=== PATIENT | male | born 1990 | race Caucasian/White ===

== ENCOUNTER 2024-08-04 15:28 | Inpatient (IN) | payer OTHER ==
[~2024-08-04] VITALS: Ht 177.8 cm; Wt 77.3 kg
[2024-08-04] MEDS: ONDANSETRON HCL 4 MG/2 ML VIAL IVP ONE (17:09)
[2024-08-04] MEDS: KETOROLAC TROMETHAMINE 30 MG/ML VIAL IVP ONE (17:09)
[2024-08-04] MEDS: ACETAMINOPHEN 500 MG TABLET PO ONE (17:09)
[2024-08-04] MEDS: SODIUM CHLORIDE 0.9% 1,000 ML IV ONE (17:09)
[2024-08-04 18:13] LABS: BASOPHILS % (AUTO) 0.3 % (0.0-2.0); HEMATOCRIT 41.8 % (41-53); HEMOGLOBIN 13.8 g/dL (13.5-17.5); LYMPHOCYTES # (AUTO) 1.5 K/uL (1.0-4.8); LYMPHOCYTES % (AUTO) 19.3 % (22.0-44.0); MEAN CORPUSCULAR HEMOGLOBIN 28.4 pg (26.0-34.0); MEAN CORPUSCULAR HGB CONC 33.1 G/dL (31.0-37.0); MEAN CORPUSCULAR VOLUME 86 fL (80-100); MONOCYTES # (AUTO) 0.4 K/uL (0.1-1.0); NEUTROPHILS # (AUTO) 5.9 K/uL (1.8-7.7); NEUTROPHILS % (AUTO) 74.4 % (40.0-70.0); PLATELET COUNT (AUTO) 316 K/uL (150-450); RED BLOOD CELL COUNT(AUTO) 4.87 MIL/uL (4.50-5.90); RED CELL DISTRIBUTION WIDTH 13.2 % (11.5-14.5)
[2024-08-04 18:19] LABS: ANION GAP 5 mmol/L (8-16); CALCIUM, TOTAL 9.1 mg/dL (8.8-10.5); CARBON DIOXIDE 31 mmol/L (22-29); CHLORIDE 101 mmol/L (98-107); CREATININE 0.67 mg/dL (0.60-1.30); GLOMERULAR FILTR. RATE CALC > 60 mL/min (>60); GLUCOSE,RANDOM 100 mg/dL (70-110); POTASSIUM 4.8 mmol/L (3.5-5.1); SODIUM SERUM 137 mmol/L (136-145); UREA NITROGEN, BLOOD 12 mg/dL (7-18)
[2024-08-04 18:23] LABS: ALBUMIN 3.6 g/dL (3.4-5.0); BILIRUBIN,DIRECT 0.1 mg/dL (0.00-0.20); BILIRUBIN,TOTAL 0.4 mg/dL (0.1-1.0); TOTAL PROTEIN, SERUM 7.6 g/dL (6.4-8.2)
[2024-08-04 18:40] LABS: ALCOHOL, BLOOD (SERUM) < 3 mg/dL (0-10)
[2024-08-04 19:35] VITALS: BP 106/66; PULSE 77; RESP 19; TEMP 97.8; O2SAT 100
[2024-08-04] MEDS ORDERED: BISACODYL 10 MG RECTAL RECTAL SUPPOSITORY PR PRN (20:30)
[2024-08-04] MEDS ORDERED: ZOLPIDEM TARTRATE 5 MG TABLET PO PRN (20:30)
[2024-08-04] MEDS ORDERED: MAGNESIUM HYDROXIDE SUSPENSION 30 ML UDCUP PO PRN (20:30)
[2024-08-04] MEDS ORDERED: ACETAMINOPHEN 325 MG TABLET PO PRN ×2 (20:30→20:45)
[2024-08-04] MEDS ORDERED: IPRATROPIUM BROMIDE 0.5 MG/2.5 ML NEB SOLUTION NEB PRN (20:30)
[2024-08-04] MEDS ORDERED: ONDANSETRON HCL 4 MG/2 ML VIAL IVP PRN (20:30)
[2024-08-04] MEDS ORDERED: ALBUTEROL SULFATE 2.5 MG/0.5 ML NEB SOLUTION NEB PRN (20:30)
[2024-08-04] MEDS ORDERED: MORPHINE SULFATE 2 MG/ML SYRINGE IVP PRN (20:30)
[2024-08-04] MEDS ORDERED: LOPERAMIDE HCL 2 MG/15 ML SUSPENSION UDCUP PO PRN (20:45)
[2024-08-04] MEDS ORDERED: PROMETHAZINE HCL 25 MG TABLET PO PRN (20:45)
[2024-08-04] MEDS ORDERED: TraZODone HCL 50 MG TABLET PO PRN (20:45)
[2024-08-04] MEDS ORDERED: DICYCLOMINE HCL 10 MG CAPSULE PO PRN (20:45)
[2024-08-04] MEDS ORDERED: CloNIDine HCL 0.1 MG TABLET PO PRN (20:45)
[2024-08-04] MEDS ORDERED: MAG HYDROX/ALUMINUM HYD/SIMETH ES 30 ML SUSPENSION UDCUP PO PRN (20:45)
[2024-08-04] MEDS ORDERED: BACLOFEN 10 MG TABLET PO PRN (20:45)
[2024-08-04] MEDS: SODIUM CHLORIDE 0.45% 1,000 ML IV SCH (20:55)
[2024-08-04] MEDS: HEPARIN SODIUM,PORCINE 5,000 UNITS/ML VIAL SQ SCH (23:02)
[2024-08-05] MEDS: LORazepam 1 MG TABLET PO PRN (03:16)
[2024-08-05 04:05] VITALS: BP 117/64; PULSE 71; RESP 19; TEMP 98; O2SAT 99
[2024-08-05 06:42] LABS: PH,URINE DRUG SCREEN 6.5 (5.0-8.0)
[2024-08-05 07:26] LABS: AMPHET/METH SCREEN,URINE POSITIVE (NEGATIVE); BARBITURATE SCREEN, URINE NEGATIVE (NEGATIVE); BENZODIAZEPINES SCREEN,URINE NEGATIVE (NEGATIVE); CANNABINOID SCREEN,URINE NEGATIVE (NEGATIVE); COCAINE SCREEN,URINE NEGATIVE (NEGATIVE); METHADONE SCREEN, URINE NEGATIVE (NEGATIVE); OPIATE SCREEN,URINE NEGATIVE (NEGATIVE); PHENCYCLIDINE SCREEN,URINE NEGATIVE (NEGATIVE)
[2024-08-05 07:28] LABS: ALCOHOL, URINE DRUG SCREEN NEGATIVE (NEGATIVE)
[2024-08-05 08:17] VITALS: BP 106/55; PULSE 89; RESP 18; TEMP 98.7; O2SAT 97
[2024-08-05] MEDS: PANTOPRAZOLE SODIUM 40 MG DR TABLET PO SCH (08:30)
[2024-08-05 20:39] VITALS: BP 116/60; PULSE 82; RESP 18; TEMP 98.4; O2SAT 97
[2024-08-06] MEDS: IBUPROFEN 600 MG TABLET PO PRN (00:04)
[2024-08-06 05:45] VITALS: BP 122/73; PULSE 73; RESP 18; TEMP 98.4; O2SAT 97
[2024-08-06 08:54] VITALS: BP 120/72; PULSE 70; RESP 18; TEMP 97.7; O2SAT 97
[2024-08-06 20:25] VITALS: BP 119/58; PULSE 75; RESP 18; TEMP 98.5; O2SAT 100
[2024-08-06] MEDS: HYDROCODONE/ACETAMINOPHEN 5-325 MG TABLET PO PRN (20:32)
[2024-08-07 05:47] VITALS: BP 125/70; PULSE 65; RESP 18; TEMP 97.8; O2SAT 98
[2024-08-07 07:45] VITALS: BP 123/72; PULSE 68; RESP 18; TEMP 98.1; O2SAT 100
[2024-08-07] MEDS: HydrOXYzine PAMOATE 50 MG CAPSULE PO PRN (08:12)
[2024-08-07 10:22] VITALS: BP 123/72; PULSE 68; RESP 18; TEMP 98.1; O2SAT 100
[2024-08-07] MEDS ORDERED: HYDR-4527 PO (14:22)
[2024-08-07 16:12] VITALS: BP 118/70; PULSE 84; RESP 18; TEMP 97.8; O2SAT 98
== END 2024-08-07 20:11 | DRG 897 ==
LOC: EMS 15:47 → EDH 18:04 → 6N 19:15
PROVIDERS: ADMIT Hospitalist; ATTEND Hospitalist
DX: F11.13 Opioid abuse with withdrawal (principal); F41.9 Anxiety disorder, unspecified; Z79.899 Other long term (current) drug therapy; F17.210 Nicotine dependence, cigarettes, uncomplicated; Z71.6 Tobacco abuse counseling
CPT/HCPCS: 80048; 80076; 80307; 85025; 96361; 96374; 96375; 99285; G0480; J1644; 36415-L1; 36415-TC